=== PATIENT | male | born 1975 | race Two or more races ===

== ENCOUNTER 2016-08-10 12:01 | Emergency (ER) | payer MEDICAID ==
[~2016-08-10] VITALS: Ht 172.7 cm; Wt 71.2 kg
[2016-08-10 13:08] VITALS: BP 120/68
== END 2016-08-10 13:27 | disposition home or self-care (01) ==
LOC: ER 12:02
DX: K02.9 Dental caries, unspecified (principal); K40.90 Unilateral inguinal hernia, without obstruction or gangrene, not specified as recurrent

== ENCOUNTER 2017-07-11 11:35 | Emergency (ER) | payer MEDICAID | END 2017-07-11 12:14 | disposition left against medical advice (07) | LOC: ER 11:35 | DX: R06.02 Shortness of breath (principal); M54.9 Dorsalgia, unspecified; Z53.21 Procedure and treatment not carried out due to patient leaving prior to being seen by health care provider ==

== ENCOUNTER 2018-10-01 05:51 | Emergency (ER) | payer MEDICAID ==
[~2018-10-01] VITALS: Ht 172.7 cm; Wt 63.5 kg
[2018-10-01 05:53] VITALS: BP 130/81
[2018-10-01 07:38] LABS: Urine WBC None Seen /hpf (0 - 3)
[2018-10-01 07:47] LABS: Urine Bacteria NONE SEEN /hpf (None Seen); Urine Blood Negative /uL (Negative); Urine Specific Gravity 1.018 (1.001-1.035)
[2018-10-01 08:04] LABS: Alcohol, Urine < 3.0 mg/dL (0-5); Amphetamine Screen, Urine NEGATIVE (NEGATIVE); Barbiturate Scree,Urine NEGATIVE (NEGATIVE); Benzodiazephine Screen, Urine NEGATIVE (NEGATIVE); Cannabinoid Screen, Urine NEGATIVE (NEGATIVE); Cocaine Screen, Urine NEGATIVE (NEGATIVE); Opiate Scree,Urine NEGATIVE (NEGATIVE); Phencyclidine Screen, Urine NEGATIVE (NEGATIVE)
== END 2018-10-01 11:47 | disposition home or self-care (01) ==
LOC: ER 05:51
DX: K40.90 Unilateral inguinal hernia, without obstruction or gangrene, not specified as recurrent (principal); K21.9 Gastro-esophageal reflux disease without esophagitis
CPT/HCPCS: 80307; 81001

== ENCOUNTER 2020-07-14 23:05 | Emergency (ER) | payer MEDICAID ==
[~2020-07-14] VITALS: Ht 172.7 cm; Wt 90.7 kg
[2020-07-14 23:05] VITALS: BP 134/77
[2020-07-15 01:40] LABS: Urine Amorphous Crystal FEW /hpf (None Seen); Urine Bacteria FEW /hpf (None Seen); Urine Blood 1+ /uL (Negative); Urine Hyaline Cast MOD /lpf (0 - 2); Urine Mucus FEW (None Seen); Urine Specific Gravity 1.028 (1.001-1.035); Urine WBC 12 /hpf (0 - 3)
== END 2020-07-15 03:00 | disposition left against medical advice (07) ==
LOC: ER 23:09
DX: R21 Rash and other nonspecific skin eruption (principal); Z53.21 Procedure and treatment not carried out due to patient leaving prior to being seen by health care provider
CPT/HCPCS: 81001

== ENCOUNTER 2020-07-15 20:04 | Emergency (ER) | payer MEDICAID ==
[~2020-07-15] VITALS: Ht 172.7 cm; Wt 70.0 kg
[2020-07-15 23:31] VITALS: BP 140/87
== END 2020-07-16 01:41 | disposition home or self-care (01) ==
LOC: ER 20:05
DX: B35.6 Tinea cruris (principal); K21.9 Gastro-esophageal reflux disease without esophagitis

== ENCOUNTER 2021-09-21 21:40 | Emergency (ER) | payer MEDICAID ==
[~2021-09-21] VITALS: Ht 172.7 cm; Wt 68.0 kg
[2021-09-21 21:40] VITALS: BP 124/84
[2021-09-22] MEDS ORDERED: HYDR-4902 PO (01:55)
== END 2021-09-22 02:19 | disposition home or self-care (01) ==
LOC: ER 21:46
DX: S02.85XA Fracture of orbit, unspecified, initial encounter for closed fracture (principal); K21.9 Gastro-esophageal reflux disease without esophagitis; W18.39XA Other fall on same level, initial encounter; Y93.89 Activity, other specified; Y92.89 Other specified places as the place of occurrence of the external cause; Y99.8 Other external cause status
CPT/HCPCS: 70486

== ENCOUNTER 2021-09-26 03:23 | Emergency (ER) | payer MEDICAID ==
[~2021-09-26] VITALS: Ht 172.7 cm; Wt 72.6 kg
[~2021-09-26 03:23] MED LIST: HYDR-4902 PO
[2021-09-26] MEDS ORDERED: IBUP800T27 PO (07:15)
[2021-09-26 07:47] VITALS: BP 143/88
[2021-09-26] MEDS ORDERED: IBUPROFEN 800 MG TAB PO ONE (09:00)
== END 2021-09-26 09:45 | disposition home or self-care (01) ==
LOC: ER 03:23
DX: S93.402A Sprain of unspecified ligament of left ankle, initial encounter (principal); K21.9 Gastro-esophageal reflux disease without esophagitis; Z79.1 Long term (current) use of non-steroidal anti-inflammatories (NSAID); Z79.899 Other long term (current) drug therapy; X50.1XXA Overexertion from prolonged static or awkward postures, initial encounter; Y93.39 Activity, other involving climbing, rappelling and jumping off; Y92.89 Other specified places as the place of occurrence of the external cause; Y99.8 Other external cause status
CPT/HCPCS: 73610

== ENCOUNTER → 2021-09-27 | Emergency (ER) | payer MEDICAID ==
[~2021-09-27] MED LIST changes: +IBUP800T27 PO
== END | disposition left against medical advice (07) ==
LOC: ER 21:58
DX: Z76.0 Encounter for issue of repeat prescription (principal); Z53.21 Procedure and treatment not carried out due to patient leaving prior to being seen by health care provider

== ENCOUNTER 2022-08-08 18:08 | Emergency (ER) | payer MEDICAID ==
[~2022-08-08] VITALS: Ht 172.7 cm; Wt 76.0 kg
[2022-08-08 18:36] VITALS: BP 129/86
== END 2022-08-08 19:36 | disposition left against medical advice (07) ==
LOC: ER 18:08
DX: N39.0 Urinary tract infection, site not specified (principal); K21.9 Gastro-esophageal reflux disease without esophagitis

== ENCOUNTER 2022-08-14 15:58 | Emergency (ER) | payer MEDICAID ==
[~2022-08-14] VITALS: Ht 172.7 cm; Wt 68.2 kg
[2022-08-14 16:11] VITALS: BP 134/86
== END 2022-08-14 16:23 | disposition left against medical advice (07) ==
LOC: ER 15:58
DX: R07.89 Other chest pain (principal); Z53.21 Procedure and treatment not carried out due to patient leaving prior to being seen by health care provider
CPT/HCPCS: 93005

== ENCOUNTER 2022-08-14 22:50 | Emergency (ER) | payer MEDICAID ==
[~2022-08-14] VITALS: Ht 172.7 cm; Wt 68.0 kg
[2022-08-14 22:50] VITALS: BP 129/93
[2022-08-14] MEDS ORDERED: MAALOX PLUS or MAALOX 30 ML PO ONE (23:45)
[2022-08-14] MEDS ORDERED: DONNATAL 5ml ORAL Elix (BELLADONNA ALK-PHENOBARB) PO ONE (23:45)
[2022-08-14] MEDS ORDERED: LIDOCAINE VISCOUS 2% 15ML UD PO ONE (23:45)
== END 2022-08-15 00:47 | disposition left against medical advice (07) ==
LOC: ER 22:50
DX: R12 Heartburn (principal); Z53.21 Procedure and treatment not carried out due to patient leaving prior to being seen by health care provider

== ENCOUNTER 2022-08-21 10:20 | Emergency (ER) | payer MEDICAID ==
[~2022-08-21] VITALS: Ht 165.1 cm; Wt 63.8 kg
[2022-08-21 10:47] VITALS: BP 121/78
[2022-08-21] MEDS ORDERED: AMOX-277 PO ×3 (10:59→11:06)
[2022-08-21] MEDS ORDERED: IBUP600T28 PO ×3 (10:59→11:06)
[2022-08-21] MEDS ORDERED: KETOROLAC TROMETH 30 MG/ML 1ML VIAL IM ONE (11:00)
== END 2022-08-21 10:59 | disposition home or self-care (01) ==
LOC: ER 10:20
DX: K08.89 Other specified disorders of teeth and supporting structures (principal); K21.9 Gastro-esophageal reflux disease without esophagitis; Z88.1 Allergy status to other antibiotic agents
CPT/HCPCS: 96372; 99283; J1885

== ENCOUNTER 2022-08-23 22:26 | Emergency (ER) | payer MEDICAID ==
[~2022-08-23] VITALS: Ht 172.7 cm; Wt 68.0 kg
[~2022-08-23 22:26] MED LIST changes: +AMOX-277 PO; +IBUP600T28 PO
[2022-08-23 22:46] VITALS: BP 129/89
[2022-08-24] MEDS ORDERED: KETOROLAC TROMETH 60MG/2ML VIAL IM ONE (02:00)
[2022-08-24] MEDS ORDERED: BENZOCAINE (DENTAL) 20 % SPRAY 60ML MT ONE (02:00)
== END 2022-08-24 04:15 | disposition home or self-care (01) ==
LOC: ER 22:28
DX: K04.7 Periapical abscess without sinus (principal); K21.9 Gastro-esophageal reflux disease without esophagitis; Z79.899 Other long term (current) drug therapy; Z98.890 Other specified postprocedural states
CPT/HCPCS: 96372; 99283; J1885

== ENCOUNTER 2022-08-25 22:11 | Emergency (ER) | payer MEDICAID ==
[~2022-08-25] VITALS: Ht 172.7 cm; Wt 70.0 kg
[2022-08-25 22:45] VITALS: BP 111/71
== END 2022-08-26 06:36 | disposition left against medical advice (07) ==
LOC: ER 22:11
DX: M79.671 Pain in right foot (principal); Z53.21 Procedure and treatment not carried out due to patient leaving prior to being seen by health care provider; W20.8XXA Other cause of strike by thrown, projected or falling object, initial encounter; Y93.89 Activity, other specified; Y92.89 Other specified places as the place of occurrence of the external cause; Y99.8 Other external cause status
CPT/HCPCS: 73630

== ENCOUNTER 2022-09-05 08:42 | Emergency (ER) | payer MEDICAID ==
[~2022-09-05] VITALS: Ht 172.7 cm; Wt 66.9 kg
[2022-09-05 11:14] VITALS: BP 132/89
== END 2022-09-05 11:02 | disposition left against medical advice (07) ==
LOC: ER 08:42
DX: M25.561 Pain in right knee (principal); K21.9 Gastro-esophageal reflux disease without esophagitis; Z79.1 Long term (current) use of non-steroidal anti-inflammatories (NSAID); Z79.2 Long term (current) use of antibiotics; Z79.899 Other long term (current) drug therapy
CPT/HCPCS: 73562

== ENCOUNTER 2022-09-07 10:51 | Emergency (ER) | payer MEDICAID ==
[~2022-09-07] VITALS: Ht 177.8 cm; Wt 72.7 kg
[2022-09-07 11:06] VITALS: BP 128/73
[2022-09-07 11:58] LABS: Basophils # (auto) 0.1 10 ^3/uL (0-0.2); Eosinophils # (auto) 0 10 ^3/uL (0-0.8); Eosinophils % (auto) 0.5 % (0.0-7.0); Hemoglobin 13.5 g/dL (13.5-17.5); Lymphocytes # (auto) 1.3 10 ^3/uL (0.4-5.4); Lymphocytes % (auto) 19.1 % (10.0-50.0); Mean Corpuscular Hemoglobin 33.1 pg (28.0-32.0); Mean Corpuscular Hgb Conc. 33.8 g/dL (32.0-36.0); Monocytes # (auto) 0.4 10 ^3/uL (0-1.3); Monocytes % (auto) 5.5 % (0.0-12.0); Neutrophils # (auto) 4.9 10 ^3/uL (1.6-8.6); Neutrophils % (auto) 73.9 % (37.0-80.0); Nucleated Red Blood Cells % 0.1 %; Red Blood Cells 4.08 10^6/uL (4.5-5.90); Red Cell Distribution Width 16.4 % (11.8-14.3); White Blood Cell 6.6 10^3/uL (4.4-10.8)
[2022-09-07 12:17] LABS: Albumin 3.9 g/dL (3.4-5.0); BUN/Creatinine Ratio 18.9; Calcium 8.3 mg/dL (8.5-10.1); Potassium 3.6 mmol/L (3.5-5.1)
[2022-09-07 12:23] LABS: Bilirubin, Total 0.4 mg/dL (0.2-1.0); Total Protein 8.1 g/dL (6.4-8.2)
== END 2022-09-07 16:49 | disposition left against medical advice (07) ==
LOC: ER 10:51 → EDUNIT# 10:51 → EDBD 10:51 → ER 16:49
DX: F10.129 Alcohol abuse with intoxication, unspecified (principal); K21.9 Gastro-esophageal reflux disease without esophagitis; Z79.899 Other long term (current) drug therapy
CPT/HCPCS: 36415; 70450; 80053; 80320; 85025

== ENCOUNTER 2022-09-08 14:44 | Emergency (ER) | payer MEDICAID ==
[~2022-09-08] VITALS: Ht 172.7 cm; Wt 63.6 kg
[2022-09-08 14:55] VITALS: BP 121/98
== END 2022-09-08 15:43 | disposition left against medical advice (07) ==
LOC: ER 14:44
DX: R51.9 Headache, unspecified (principal); Z53.21 Procedure and treatment not carried out due to patient leaving prior to being seen by health care provider

== ENCOUNTER 2022-09-10 10:09 | Emergency (ER) | payer MEDICAID ==
[~2022-09-10] VITALS: Ht 172.7 cm; Wt 64.4 kg
[2022-09-10 10:20] VITALS: BP 122/88
== END 2022-09-10 11:02 | disposition left against medical advice (07) ==
LOC: ER 10:09
DX: B85.0 Pediculosis due to Pediculus humanus capitis (principal); Z53.21 Procedure and treatment not carried out due to patient leaving prior to being seen by health care provider

== ENCOUNTER 2023-06-26 20:43 | Emergency (ER) | payer SELFPAY ==
[~2023-06-26 20:43] MED LIST changes: -AMOX-277 PO; +AMOX875T4 PO; +IBUP-1456 PO; +IBUP1TAB5 PO; -IBUP600T28 PO; -IBUP800T27 PO
[2023-07-08] MEDS ORDERED: PER60TP TOP (11:42)
[2023-07-08] MEDS ORDERED: HYDR25CA PO (11:42)
== END 2023-06-26 20:56 | disposition left against medical advice (07) ==
LOC: ER 20:43
DX: N48.9 Disorder of penis, unspecified (principal); Z53.21 Procedure and treatment not carried out due to patient leaving prior to being seen by health care provider

== ENCOUNTER 2023-07-08 10:49 | Emergency (ER) | payer SELFPAY ==
[~2023-07-08] VITALS: Ht 172.7 cm; Wt 63.4 kg
[2023-07-08 11:16] VITALS: BP 137/79; TEMP 98.3
[2023-07-08] MEDS ORDERED: HYDR25CA PO ×2 (11:42)
[2023-07-08] MEDS ORDERED: PER60TP TOP ×2 (11:42)
[2023-07-08 11:44] VITALS: PULSE 97; RESP 17; O2SAT 98
[2023-07-11] MEDS ORDERED: PER60TP TOP (01:30)
[2023-07-11] MEDS ORDERED: HYDR25CA PO (01:30)
== END 2023-07-08 11:46 | disposition home or self-care (01) ==
LOC: ER 10:49
DX: B86 Scabies (principal)

== ENCOUNTER 2023-09-06 23:29 | Emergency (ER) | payer MEDICAID ==
[~2023-09-06 23:29] MED LIST changes: +HYDR25CA PO; +PER60TP TOP
== END 2023-09-07 00:24 | disposition left against medical advice (07) ==
LOC: ER 23:29
DX: N48.89 Other specified disorders of penis (principal); Z53.21 Procedure and treatment not carried out due to patient leaving prior to being seen by health care provider